=== PATIENT | male | born 1970 | race African-American/Black ===

== ENCOUNTER 2018-10-04 09:17 | Emergency (ER) | payer MEDICAID ==
[~2018-10-04] VITALS: Ht 170.2 cm; Wt 77.1 kg
[2018-10-04 09:30] VITALS: BP 193/101
== END 2018-10-04 11:01 | disposition home or self-care (01) ==
LOC: ER 09:17
DX: S63.601A Unspecified sprain of right thumb, initial encounter (principal); I10 Essential (primary) hypertension; F17.210 Nicotine dependence, cigarettes, uncomplicated; W22.8XXA Striking against or struck by other objects, initial encounter; Y93.89 Activity, other specified; Y92.89 Other specified places as the place of occurrence of the external cause; Y99.8 Other external cause status
CPT/HCPCS: 29125; 73140